=== PATIENT | male | born 1940 | race Caucasian/White ===

== ENCOUNTER 2022-07-11 05:32 | Day surgery (SDC) | payer MEDICARE ==
[2022-07-09 09:29] LABS: BASOPHILS % (AUTO) 1.1 % (0.0-5.0); EOSINOPHILS % (AUTO) 2.4 % (0.0-8.0); HEMATOCRIT 39.8 % (42-54); LYMPHOCYTES % (AUTO) 26.3 % (21.0-51.0); MEAN CORPUSCULAR HGB CONC 33.4 g/dL (32.0-36.0); MEAN CORPUSCULAR VOLUME 95.7 fL (79-99); MONOCYTES % (AUTO) 12.5 % (3.0-13.0); NEUTROPHILS % (AUTO) 57.3 % (40.0-77.0); PLATELET COUNT (AUTO) 189 K/uL (130-400); RED BLOOD CELL COUNT(AUTO) 4.16 MIL/uL (4.50-6.20); RED CELL DISTRIBUTION WIDTH 12.6 % (11.0-15.5); WHITE BLOOD COUNT (AUTO) 8.1 K/uL (4.8-10.8)
[2022-07-09 09:49] LABS: ALBUMIN 3.6 g/dL (3.5-5.0); CARBON DIOXIDE 26 mmol/L (21-32); CHLORIDE 100 mmol/L (101-111); CREATININE 1.1 mg/dL (0.5-1.5); GLOMERULAR FILTR. RATE CALC 68 mL/min (>60); GLUCOSE,RANDOM 110 mg/dL (70-105); POTASSIUM 4.2 mmol/L (3.5-5.1); SODIUM SERUM 134 mmol/L (136-145); UREA NITROGEN, BLOOD 31 mg/dL (7-18)
[2022-07-09 10:18] LABS: CRP QUANTITATIVE < 2.00 mg/L (0.00-9.0)
[2022-07-10 10:39] VITALS: BP 143/67
[~2022-07-11] VITALS: Ht 172.7 cm; Wt 92.4 kg
[2022-07-11] VITALS (10 sets, daily range): BP systolic 130–142; BP diastolic 52–72
[~2022-07-11 05:32] MED LIST: ATOR10 PO; BUPIVACAINE/PF 0.5% 30ML VIAL ONE; CLOP-31 PO; FAMO40TA7 PO; OMEP20CA12 PO; TAMS-1 PO; VITAMIN B12 PO; [UNRECOGNIZED DRUG - CODE] PO
[2022-07-11] MEDS ORDERED: CEFAZOLIN SODIUM 2 GM VIAL IVPB SCH (06:00)
[2022-07-11] MEDS ORDERED: LACTATED RINGERS 1000ML 1,000 ML IV ONE (06:14)
[2022-07-11] MEDS ORDERED: PROPOFOL 10 MG/ML 20ML VIAL IV ONE (07:12)
[2022-07-11] MEDS ORDERED: FENTANYL CITRATE PF 50 MCG/1 ML 2ML VIAL ONE (07:12)
[2022-07-11] MEDS ORDERED: MIDAZOLAM HCL 1 MG/ML 2ML VIAL ONE (07:12)
[2022-07-11] MEDS ORDERED: ONDANSETRON 4MG INJ ONE (07:14)
[2022-07-11] MEDS ORDERED: IOHEXOL 180 MG/ML 20 ML VIAL ONE (07:36)
== END 2022-07-11 08:52 | disposition home or self-care (01) ==
LOC: DAH 05:32
PROVIDERS: ATTEND Student in an Organized Health Care Education/Training Program
DX: M16.11 Unilateral primary osteoarthritis, right hip (principal); Z20.822 Contact with and (suspected) exposure to COVID-19; M70.61 Trochanteric bursitis, right hip; G89.29 Other chronic pain; I10 Essential (primary) hypertension; K21.9 Gastro-esophageal reflux disease without esophagitis; E78.5 Hyperlipidemia, unspecified; Z86.73 Personal history of transient ischemic attack (TIA), and cerebral infarction without residual deficits; Z87.891 Personal history of nicotine dependence; Z98.890 Other specified postprocedural states; Z79.01 Long term (current) use of anticoagulants; Z79.899 Other long term (current) drug therapy
CPT/HCPCS: 87426; 82040; 80048; 85025; 84134; 86140; 36415; 20610; 77002; 73503; A4663; J7120; J3010; J2250; J2704; J2405; J1030; J3490; Q9965; J0690; A4215; A4223; A4222; A4221